=== PATIENT | male | born 1990 | race Asian ===

== ENCOUNTER 2019-09-03 22:52 | Emergency (ER) | payer BC, MEDICAID ==
[~2019-09-03] VITALS: Ht 170.2 cm; Wt 94.0 kg
[2019-09-03 22:53] VITALS: BP 155/104
--- NOTE | 2019-09-04 02:46 | NUR ---
He said that he thinks his parents are putting "chadian medicine in my food for me to loose weight" When he asked them to see what it was, they wouldn't show him. He got upset. The ironing worker were called, he took off and the ironing worker found him and brought him here he says. Through conversation he seems appropriate, good conversation, keep on track with conversation. Has insight. He hasn't worked since January, he lives at home. Encouraged pt to update his resume and look for work and get a place of his own. He agrees.
== END 2019-09-04 02:48 | disposition home or self-care (01) ==
LOC: ER 22:53
DX: Z00.00 Encounter for general adult medical examination without abnormal findings (principal); F12.90 Cannabis use, unspecified, uncomplicated; F10.99 Alcohol use, unspecified with unspecified alcohol-induced disorder; Z88.8 Allergy status to other drugs, medicaments and biological substances; Y90.9 Presence of alcohol in blood, level not specified
CPT/HCPCS: 99281

== ENCOUNTER 2022-08-18 06:56 | Emergency (ER) | payer BC, MEDICAID ==
[~2022-08-18] VITALS: Ht 172.7 cm; Wt 95.5 kg
[2022-08-18 07:35] LABS: BASOPHILS # (AUTO) 0.1 X10'3 (0-0.2); BASOPHILS % (AUTO) 0.9 % (0-1); EOSINOPHILS # (AUTO) 0.4 X10'3 (0-0.9); EOSINOPHILS % (AUTO) 3.2 % (0-6); HEMATOCRIT 42.1 % (42.0-52.0); HEMOGLOBIN 13.4 g/dl (14.0-17.9); MEAN CORPUSCULAR HEMOGLOBIN 21.9 PG (27.0-31.0); MEAN CORPUSCULAR HGB CONC 31.8 g/dL (33.0-36.5); MEAN CORPUSCULAR VOLUME 68.9 FL (78-98); MEAN PLATELET VOLUME 8.6 FL (7.4-10.4); MONOCYTES # (AUTO) 1.3 X10'3 (0-0.9); MONOCYTES % (AUTO) 9.5 % (2-12); NEUTROPHILS # (AUTO) 9.5 X10'3 (1.8-7.7); NEUTROPHILS % (AUTO) 71.4 % (42-75); PLATELET COUNT 322 X10'3 (140-440); RED BLOOD COUNT 6.11 X10'6 (4.70-6.10); RED CELL DISTRIBUTION WIDTH 15.2 % (11.5-14.5); WHITE BLOOD COUNT 13.2 X10'3 (4.5-11.0)
[2022-08-18 08:03] LABS: ALANINE AMINOTRANSFERASE 64 U/L (12-78); ALBUMIN 3.9 G/DL (3.4-5.0); ALBUMIN/GLOBULIN RATIO 0.9 (1.1-1.5); ALKALINE PHOSPHATASE 59 IU/L (46-116); ANION GAP 8 (8-16); ASPARTATE AMINO TRANSFERASE 33 U/L (10-37); BILIRUBIN,TOTAL 0.7 MG/DL (0.1-1.0); BLOOD UREA NITROGEN 8 MG/DL (7-18); BUN/CREATININE RATIO 9.9 (5.4-32.0); CALCIUM 8.8 MG/DL (8.5-10.1); CHLORIDE 102 MMOL/L (99-107); CREATININE 0.81 MG/DL (0.60-1.10); GLUCOSE 114 MG/DL (70-104); POTASSIUM 3.7 MMOL/L (3.5-5.1); SODIUM 135 MMOL/L (135-145); TOTAL CARBON DIOXIDE 24.9 MMOL/L (24-32); TOTAL PROTEIN 8.3 G/DL (6.4-8.2); eGFR > 90 ML/MIN
[2022-08-18 08:05] LABS: MAGNESIUM 2.1 MG/DL (1.5-2.4)
[2022-08-18 08:09] LABS: PLATELET ESTIMATE NORMAL
[2022-08-18 08:10] LABS: MICROCYTOSIS 2+
[2022-08-18] MEDS ORDERED: pantoprazole 40mg Tablet.DR PO STA (12:29)
[2022-08-18] MEDS ORDERED: aspirin 325mg tablet PO ONE (12:30)
[2022-08-18] MEDS ORDERED: ASPI-1264 PO (12:35)
[2022-08-18] MEDS ORDERED: PANT20TA18 PO (12:35)
[2022-08-18 13:08] VITALS: BP 124/74
== END 2022-08-18 13:13 | disposition home or self-care (01) ==
LOC: ER 06:57
DX: R07.1 Chest pain on breathing (principal); F15.10 Other stimulant abuse, uncomplicated; Z88.6 Allergy status to analgesic agent; Z56.0 Unemployment, unspecified
CPT/HCPCS: 36415; 71045; 80053; 83735; 83880; 84484; 85008; 85025; 85651; 93306; 99285